=== PATIENT | male | born 1970 | race Caucasian/White ===

== ENCOUNTER → 2016-07-25 | Day surgery (SDC) | payer OTHER ==
[2016-07-21 13:45] VITALS: BMI 45.0
[~2016-07-25] VITALS: Ht 190.5 cm; Wt 165.0 kg
[~2016-07-25] MED LIST: ALPR-411 PO; LIDOCAINE HCL 2% 2 ML VIAL (20MG/ML) ONE; LISI-725 PO; METO100T16 PO; OXYC-164 PO; PROPOFOL IV EMULSION 10 MG/ML 20 ML VIAL IV ONE
[2016-07-25 13:37] VITALS: Ht 190.5 cm; Wt 165.0 kg
--- NOTE | 2016-07-25 13:54 | Endo History and Physical ---
History & Physical Date of Service: Jul 25, 2016. Chief Complaint: early satiety Referring Physician: Dr. Torres History of Present Illness For EGD Past Surgical History Hx Cardiac Surgery: No Hx Internal Defibrillator: No Hx Pacemaker: No Hx Abdominal Surgery: Yes (LAP BAND PROCEDURE) Hx of Implantable Prosthesis: No Hx Post-Op Nausea and Vomiting: No Hx Cancer Surgery: No Hx Thoracic Surgery: No Hx Orthopedic: Yes (RT ARM TUMOR REMOVAL (BENIGN), LUMBAR DISCECTOMY) Hx Urinary Tract Surgery: No Family History None Social History Smoking Status: Never Smoker Hx Substance Use: Yes (SEE MED REC) Hx Alcohol Use: Yes (RARELY) Allergies Coded Allergies: NO KNOWN DRUG ALLERGIES (Verified Allergy, Unknown, ., 07/25/16) Current Medications Reported Home Medications Medications Dose Route/Sig Max Daily Dose Days Date Category Xanax (Alprazolam) 0.5 Mg Tab 1 Mg PO BID PRN 07/21/16 Reported Oxycodone Hcl 10 Mg Tab 1 Tab PO TID PRN 30 07/21/16 Reported Metoprolol/Hydrochlorothi (Metoprolol & Hydrochlorothiazi) 1 Tab Tab 1 Tab PO HS 07/21/16 Reported Zestril (Lisinopril) 20 Mg Tab 20 Mg PO HS 07/21/16 Reported Vital Signs Weight (Kilograms): 165.00 Height (Feet): 6 Height (Inches): 3 Date Time Temp Pulse Resp B/P (MAP) Pulse Ox O2 Delivery O2 Flow Rate FiO2 07/25/16 13:47 37.1 81 18 154/80 (104) 93 Room Air Physical Exam General Appearance: + obese Respiratory/Chest: Respiratory effort: no dyspnea Cardiovascular: Heart Auscultation: RRR Abdomen: Bowel Sounds: pertinent finding (scar) Assessment and Plan S/P lap band for reassessment by EGD
--- NOTE | 2016-07-25 14:13 | Discharge Instructions ---
Endoscopy Patient Instructions Date / Procedure(s) Performed Jul 25, 2016. EGD Allergy Information Coded Allergies: NO KNOWN DRUG ALLERGIES (Verified Allergy, Unknown, ., 07/25/16) Discharge Date / Findings Jul 25, 2016. Loose lap band Medication Instructions Restart Stopped Medication(s): resume meds Reported Home Medications Medications Dose Route/Sig Max Daily Dose Days Date Category Xanax (Alprazolam) 0.5 Mg Tab 1 Mg PO BID PRN 07/21/16 Reported Oxycodone Hcl 10 Mg Tab 1 Tab PO TID PRN 30 07/21/16 Reported Metoprolol/Hydrochlorothi (Metoprolol & Hydrochlorothiazi) 1 Tab Tab 1 Tab PO HS 07/21/16 Reported Zestril (Lisinopril) 20 Mg Tab 20 Mg PO HS 07/21/16 Reported Provider Instructions Activity Restrictions - No exercising or heavy lifting for 24 hours. - Do not drink alcohol the day of the procedure. - Do not drive a car or operate machinery until the day after the procedure. - Do not make any important decisions or sign important papers in 24 hours after the procedure. Following Day: - Return to full activity which may include returning to work/school. Diet Start your diet with liquids and light foods (jello, soup, juice, toast). Then eat your usual diet if not nauseated. Treatment For Common After Affects For mild abdominal pain, bloating, or excessive gas: - Rest - Eat lightly - Lie on right side Follow-Up Information Follow-up with Dr. Torres as scheduled Anesthesia Information What You Should Know You have had a procedure that required some medicine to reduce anxiety and discomfort. This treatment is called moderate sedation. After receiving the treatment, you may be sleepy, but you will be able to breathe on your own. The effects of the treatment may last for several hours. Follow these instructions along with Activity/Diet recommendations noted above: * Do NOT do anything where dizziness or clumsiness would be dangerous. * Rest quietly at home today, then you can be up and about tomorrow. * Have a responsible person stay with you the rest of today. * You may have had an I.V. today. If so, you may take the dressing off later today. Recommendations Call your doctor if: * Trouble breathing * Continuous vomiting for more than 24 hours * Temperature above 101 degrees * Severe abdominal pain or bloating * Pain not relieved by pain medicine ordered * There is increased drainage or redness from any incision * A large amount of rectal bleeding greater than 2-3 tablespoons. (If you had a polyp/s removed or have hemorrhoids, a small amount of blood - from the rectum is to be expected.) * You have any unanswered questions or concerns. IN THE EVENT OF A SERIOUS EMERGENCY, GO TO THE NEAREST EMERGENCY ROOM Your discharge instructions were prepared by provider Efrain Larsen. Patient Instructions Signature Page Matthew Urrutia Patient (or Guardian) Signature/Date: I have read and understand the instructions given to me by my caregivers. Caregiver/RN/Doctor Signature/Date: The above-named patient and/or guardian has received patient instructions on this date. + Original Patient Signature Page (only) stays with chart. Please make copy for patient.
--- NOTE | 2016-07-25 14:23 | GI REPORT ---
Procedure Date: 07/25/2016 1:39 PM Procedure: Upper GI endoscopy Indications: Preoperative assessment for bariatric surgery to treat morbid obesity, Early satiety Medicines: Propofol total dose 160 mg IV, Lidocaine 80 mg IV Complications: No immediate complications. Estimated Blood Loss: Estimated blood loss: none. Procedure: Pre-Anesthesia Assessment: - Prior to the procedure, a History and Physical was performed, and patient medications, allergies and sensitivities were reviewed. The patient's tolerance of previous anesthesia was reviewed. - The risks and benefits of the procedure and the sedation options and risks were discussed with the patient. All questions were answered and informed consent was obtained. After obtaining informed consent, the endoscope was passed under direct vision. Throughout the procedure, the patient's blood pressure, pulse, and oxygen saturations were monitored continuously. The scope was introduced through the mouth, and advanced to the second part of duodenum. The upper GI endoscopy was accomplished without difficulty. The patient tolerated the procedure well. Findings: LA Grade B (one or more mucosal breaks greater than 5 mm, not extending between the tops of two mucosal folds) esophagitis with no bleeding was found. Evidence of a [Status] vertical banded gastroplasty was found. A gastric pouch [Pouch Width] [Pouch Size] was found [Pouch Contents]. [Staple Line]. Evidence of a Silastic band [Band Seen] and appeared loose. This was traversed. The examined duodenum was normal. Impression: - LA Grade B reflux esophagitis. - [Status] vertical banded gastroplasty [Pouch Volume] [Staple Line] and band appears loose. - Normal examined duodenum. - No specimens collected. Recommendation: - Discharge patient to home (ambulatory). - Continue present medications. - Return to referring physician as previously scheduled. Efrain Larsen M.D. Efrain Larsen MD 07/25/2016 2:23:04 PM This report has been signed electronically. Note Initiated On: 07/25/2016 1:39 PM I attest to the content of the Intraoperative Record and orders documented therein, exceptions below
--- NOTE | 2016-07-25 14:43 | Anesthesiology Progress Note ---
Anesthesia Post Op Note Date & Time Jul 25, 2016 at 14:43 Vital Signs Pain Intensity: 0 Vital Signs Past 12 Hours Date Time Temp Pulse Resp B/P (MAP) Pulse Ox O2 Delivery O2 Flow Rate FiO2 07/25/16 14:36 79 18 143/83 (103) 95 Room Air 07/25/16 14:19 81 18 129/76 (93) 93 Room Air 07/25/16 13:47 37.1 81 18 154/80 (104) 93 Room Air Notes Mental Status: alert / awake / arousable, participated in evaluation Pt Amnestic to Procedure: Yes Nausea / Vomiting: adequately controlled Pain: adequately controlled Airway Patency, RR, SpO2: stable & adequate BP & HR: stable & adequate Hydration State: stable & adequate Anesthetic Complications: no major complications apparent
[2016-07-25 14:45] VITALS: BP 139/88; PULSE 74; O2SAT 95
== END | disposition home or self-care (01) ==
LOC: C.GI 12:47
PROVIDERS: ATTEND Internal Medicine Gastroenterology
DX: R68.81 Early satiety (principal); E66.09 Other obesity due to excess calories